=== PATIENT | male | born 1945 | race Caucasian/White ===

== ENCOUNTER 2018-11-21 10:26 | Emergency (ER) | payer MEDICARE, BC ==
[~2018-11-21] VITALS: Ht 177.8 cm; Wt 88.5 kg
--- NOTE | 2018-11-21 10:52 | NUR ---
BIB FOR PSYCH EVAL HAVING HALLUCINATION AND UNABLE TO SLEEP AT NIGHT. STATES HE IS "SWATTING AT THINGS THAT AREN'T IN FRONT OF HIM". -SI/-HI. PT IS VERBAL, AOX1, VSS, RR EVEN AND UNLABORED. DIFFICULTY WITH AMBULATION, AND INCONTINENT. SKIN INTACT, NO COMPLAINTS AT THIS TIME. READY FOR EVAL.
[2018-11-21 11:19] LABS: BASOPHILS # (AUTO) 0.1 /CMM (0.0-0.2); BASOPHILS % (AUTO) 0.9 % (0.0-2.0); EOSINOPHILS % (AUTO) 1.4 % (0.0-6.0); HEMATOCRIT 42 % (39-51); HEMOGLOBIN 14.6 g/dL (13.5-17.5); LYMPHOCYTES # (AUTO) 1.2 /CMM (0.8-4.8); LYMPHOCYTES % (AUTO) 10.9 % (20.0-44.0); MEAN CORPUSCULAR HGB CONC 35 g/dl (31.0-36.0); MEAN CORPUSCULAR VOLUME 95 fL (80-96); MONOCYTES # (AUTO) 0.8 /CMM (0.1-1.30); MONOCYTES % (AUTO) 7.7 % (2.0-12.0); NEUTROPHILS # (AUTO) 8.3 /CMM (1.8-8.9); NEUTROPHILS % (AUTO) 79.1 % (43.0-81.0); PLATELET COUNT (AUTO) 176 /CMM (150-450); WHITE BLOOD COUNT (AUTO) 10.5 K/uL (4.3-11.0)
[2018-11-21 11:26] LABS: CALCIUM, SERUM 8.1 mg/dL (8.5-10.1); CARBON DIOXIDE 23 mmol/L (21-32); CHLORIDE 104 mmol/L (98-107); CREATININE 1.2 mg/dL (0.6-1.3); GLUCOSE 116 mg/dL (74-106); POTASSIUM 3.6 mmol/L (3.5-5.1); SODIUM SERUM 136 mmol/L (136-145); UREA NITROGEN, BLOOD 18 mg/dL (7-18)
[2018-11-21] MEDS ORDERED: IV NS 0.9% 500 ML BAG IV ONE (11:30)
--- NOTE | 2018-11-21 11:37 | NUR ---
received a call from Intake and per GG patient is accepted to [place] once medically cleared.
[2018-11-21 11:40] LABS: ALANINE AMINOTRANSFERASE 14 U/L (12-78); ALBUMIN 3.5 g/dL (3.4-5.0); ALKALINE PHOSPHATASE 100 U/L (46-116); ASPARTATE AMINOTRANSFERASE 26 U/L (15-37); BILIRUBIN,DIRECT 0.1 mg/dL (0.0-0.2); BILIRUBIN,TOTAL 0.6 mg/dL (0.2-1.0); TOTAL PROTEIN, SERUM 6.9 g/dL (6.4-8.2)
--- NOTE | 2018-11-21 11:40 | NUR ---
URINE COLLECTED VIA STRAIGHT CATH AND SENT TO STAT LAB
[2018-11-21 11:43] LABS: ACETAMINOPHEN 0 ug/ml (10-30); ALCOHOL, BLOOD < 3 mg/dL (0-0)
--- NOTE | 2018-11-21 12:04 | NUR ---
CLEANED PT AND PUT IN CLEAN DIAPER. MADE COMFORTABLE WITH BLANKET
[2018-11-21] MEDS ORDERED: CARB-93 PO ×3 (12:09)
[2018-11-21] MEDS ORDERED: HYDR25TA4 PO (12:09)
[2018-11-21] MEDS ORDERED: TEMA15CA PO (12:09)
[2018-11-21] MEDS ORDERED: POTA-10 PO (12:09)
[2018-11-21] MEDS ORDERED: OLME40TA12 PO (12:09)
--- NOTE | 2018-11-21 12:10 | NUR ---
PULLER OUT [facility] AT BEDSIDE FOR EVAL.
[2018-11-21 12:25] LABS: BILIRUBIN,URINE Negative (NEGATIVE); BLOOD, URINE Trace-lysed Ery/uL (NEGATIVE); COLOR,URINE Yellow (YELLOW); KETONES,URINE Negative (NEGATIVE); LEUKOCYTE ESTERASE ,URINE Negative (NEGATIVE); NITRITE, URINE Negative (NEGATIVE); PROTEIN,URINE Negative (NEGATIVE); UGLUCOSE Negative (NEGATIVE); UROBILINOGEN,URINE 0.2 EU/dL (0.2)
[2018-11-21 12:28] LABS: APPEARANCE,URINE SLIGHTLY HAZY (CLEAR)
[2018-11-21 12:38] LABS: BACTERIA,URINE Many /HPF (None Seen); RBC,URINE 0-2 /HPF (0-2); SQUAMOUS EPITHELIAL CELL,UR Rare /HPF (None Seen)
--- NOTE | 2018-11-21 13:09 | NUR ---
CALLED FOR S TRANSPORT, TRIP [id number], ETA 1400
[2018-11-21 13:21] VITALS: BP 117/73
--- NOTE | 2018-11-21 13:45 | NUR ---
REPORT GIVEN TO SHANE HEDRICK AT [facility] FOR [facility] [phone]
--- NOTE | 2018-11-21 14:06 | NUR ---
REPORT GIVEN TO [facility] FOR TRANSFER
== END 2018-11-21 14:06 ==
LOC: ER 10:27
DX: F03.90 Unspecified dementia, unspecified severity, without behavioral disturbance, psychotic disturbance, mood disturbance, and anxiety (principal); I10 Essential (primary) hypertension; G47.00 Insomnia, unspecified; Z79.899 Other long term (current) drug therapy
CPT/HCPCS: 36415; 80048; 80076; 80305; 80307; 80329; 81001; 85025; 87086; 99285; G0480; J7040; 81000-TC; 87186-TC